=== PATIENT | male | born 2000 | race Two or more races ===

== ENCOUNTER 2024-01-16 21:38 | Inpatient (IN) | payer MEDICAID, SELFPAY ==
[2024-01-16 21:39] VITALS: BMI 31.9
[2024-01-16 22:10] VITALS: BP 148/92; PULSE 117; RESP 20; TEMP 39; O2SAT 95
--- NOTE | 2024-01-16 22:17 | XR_ITS ---
Examination: CT abdomen with intravenous contrast CT pelvis with intravenous contrast 2-D coronal reconstructions 2-D sagittal reconstructions Date and time of exam:January 16, 2024 1146 hrs. Indications: Nausea vomiting today. CTDI: vol (mGy) 8.88 DLP: (mGycm) 519 Technique: Multiple axial sections of the abdomen and pelvis have been obtained. 64 slice high-resolution scanner used. 3 mm axial sections have been obtained, post intravenous injection 60 cc Isovue-370 2-D sagittal, coronal reconstructions obtained. Low dose protocols were performed. One or more of the following dose reduction techniques were used; automated exposure control, adjustment of the mA and/or KV according to patient size, use of iterative reconstruction technique. Findings: No focal liver or splenic lesion No gallstones No pancreatic mass 3 mm calcification in a 17 mm right renal cyst Aorta normal size Large phlegmonous mass surrounding the cecum with poorly defined tubular structure medial to the cecum axial image 149, probably ruptured inflamed appendix Bladder intact Impression: Large phlegmonous infectious mass surrounding the cecum with poorly defined tubular structure medial to the cecum, most consistent with inflamed ruptured acute appendicitis The appearance should be clinically correlated
--- NOTE | 2024-01-16 22:18 | EDRME_ITS ---
Rapid Medical Screening Exam [facility] Arrival date/time: 01/16/24 21:38 23M with no significant PMH presents to ED with 1 week of worsening epigastric pain and N/V. Patient denies diarrhea and drug/alcohol use. Chief Complaint: Abdominal Pain Vital signs: Vital Signs Temperature 102.2 F H 01/16/24 22:10 Pulse Rate 117 H 01/16/24 22:10 Respiratory Rate 20 01/16/24 22:10 Blood Pressure 148/92 H 01/16/24 22:10 Pulse Oximetry (%) 95 01/16/24 22:10 Oxygen Delivery Method Room Air 01/16/24 22:10
[2024-01-16 23:01] LABS: Lactate (Lactic Acid) 1.1 mMol/L (0.4-2.0)
[2024-01-16 23:03] LABS: Basophils % (Auto) 0 % (0-2.5); Eosinophils % (Auto) 0 % (0-10); Hematocrit 40.2 % (41.0-53.0); Hemoglobin 13.3 g/dL (13.5-16.0); Immature Granulocytes % (Auto) 0 % (0-0); Immature Granulocytes Auto 0.06 Thou/mm3 (0.00-0.00); Lymphocytes # (Auto) 1.7 Thou/mm3 (1.0-4.8); Lymphocytes % (Auto) 11 % (10-50); Mean Corpuscular HGB Conc 33.1 g/dl (31.0-37.0); Mean Corpuscular Hemoglobin 27.7 pg (25.0-35.0); Mean Corpuscular Volume 84 fL (80-100); Monocytes # (Auto) 1.6 Thou/mm3 (0.0-0.8); Monocytes % (Auto) 10 % (0-12); Neutrophils # (Auto) 12.4 Thou/mm3 (1.8-7.7); Neutrophils % (Auto) 79 % (37-80); Nucleated Red Blood Cell % 0 /100 WBC (0); Platelet Count 421 Thou/mm3 (140-440); RDW Standard Deviation 38.5 fL (35.1-43.9); Red Blood Count 4.81 Miln/mm3 (4.50-5.90); White Blood Count 15.8 Thou/mm3 (3.8-10.6)
[2024-01-16 23:15] VITALS: TEMP 39
[2024-01-16 23:15] LABS: Collection Type, Urine Clean Catch
[2024-01-16] MEDS: ACETAMINOPHEN 500 MG TABLET 1000 MG PO (23:15)
[2024-01-16] MEDS: SODIUM CHLORIDE 0.9% 1000 ML 1,000 ML 999 ML IV (23:24)
--- NOTE | 2024-01-16 23:25 | PC.NURSE ---
RECEIVE PT FROM ER LOBBY, PT CAME TO ER FOR C/O ABD PAIN, IN TRIAGE PT HAD FEVER, SEPSIS ALERT CALLED, PT SAID HE HAS UPPER ABD PAIN X 4 DAYS, SEN BY CLINIC AND DX OF PULLED MUSCLE. NO C/O N/V/D, C/O NOT EATING.
[2024-01-16 23:32] LABS: Bilirubin,Urine 1+ (Negative); Blood,Urine 2+ (Negative); Clarity,Urine Clear (Clear/Hazy); Color,Urine Yellow (Lt Yel-Yel); Glucose, Urine Negative (Negative); Ketones,Urine 4+ (Negative); Leukocyte Esterase,Urine Negative (Negative); Nitrite,Urine Negative (Negative); Protein,Urine 1+ (Neg - Trace); RBC,Urine 11 /hpf (0-3); Specific Gravity,Urine 1.033 (1.001-1.035); Squamous Epithelial Cell,Urine < 1 /hpf (0-5); WBC,Urine 3 /hpf (0-5)
[2024-01-16 23:33] LABS: Alanine Aminotransferase 28 U/L (10-49); Albumin, Serum 4.6 gm/dL (3.5-5.0); Albumin/Globulin Ratio 1.2 (1.2-2.2); Alkaline Phosphatase 131 U/L (46-116); Anion Gap 10 (7-16); Aspartate Amino Transferase 16 U/L (0-34); BUN/Creatinine Ratio 10 Ratio (12-20); Bilirubin,Total 0.9 mg/dL (0.3-1.2); Blood Urea Nitrogen 8 mg/dL (9-23); Calcium 10.1 mg/dL (8.3-10.6); Calcium (Corrected) 10.1 mg/dL (8.5-10.1); Carbon Dioxide 25.6 mMol/L (20.0-31.0); Chloride 97 mMol/L (98-107); Creatinine (Component) 0.8 mg/dL (0.6-1.3); Estimated Creatinine Clearance 157.1 mL/min (>60); Globulin 3.7 gm/dL (2.3-3.5); Glucose 93 mg/dL (74-106); Lipase 27 U/L (12-53); Osmolality,Calculated 264 (275-295); Potassium 3.6 mMol/L (3.4-5.1); Procalcitonin 0.28 ng/ml (0.0-0.49); Sodium 133 mMol/L (136-145); Total Protein 8.3 gm/dL (5.7-8.2); eGFR > 60 See Note
[2024-01-16 23:38] LABS: Amphetamine/Methamp Scrn,U Negative (Negative); Barbiturate Screen,Urine Negative (Negative); Benzodiazepines Screen,Urine Negative (Negative); Benzoylecgonine Screen, Ur Negative (Negative); Fentanyl Screen,Urine Negative (Negative); Opiate Screen,Urine Negative (Negative); THC Screen,Urine Negative (Negative)
[2024-01-17] VITALS (7 sets, daily range): BP systolic 137–162; BP diastolic 71–93; PULSE 83–104; RESP 16–20; TEMP 36.4–38.4; O2SAT 96–99; BMI 32.5
--- NOTE | 2024-01-17 00:33 | PD.EDABDPN ---
ED Abdominal Pain RME/HPI General Chief Complaint: Abdominal Pain Stated complaint: MY STOMACH IS BURNING Arrival date/time: 01/16/24 21:38 RME / HPI RME / HPI narrative: 01/16/24 21:38 23M with no significant PMH presents to ED with 1 week of worsening epigastric pain and N/V. Patient denies diarrhea and drug/alcohol use. ---- Dr. Judge?s Main ED Evaluation: 29-year-old male otherwise healthy who presents with 1 week of initially right upper quadrant pain that has now migrated to his epigastric region. He denies nausea vomiting or diarrhea. He notes near complete anorexia and has not had an appetite to eat for the last 3 days. He denies right lower quadrant pain or any lower abdominal pain. Related Data Home Medications ?Medication ?Instructions ?Recorded ?Confirmed No Known Home Medications 01/16/24 01/16/24 Allergies Allergy/AdvReac Type Severity Reaction Status Date / Time No Known Allergies Allergy Verified 01/16/24 21:39 Review of Systems Review of Systems Systems Reviewed: All systems reviewed, normal except as documented Past Medical History Past Medical History CARDIAC: Negative Cardiac Disorders or Congestive Heart Failure RESPIRATORY: Negative Chronic Obstructive Pulmonary Disease (COPD) or Asthma GENITOURINARY: Negative Renal Disease ENDOCRINE: Negative Diabetes Mellitus Type 1 or Diabetes Mellitus Type 2 HEMATOLOGIC: Negative Sickle Cell Disease Social History SMOKING STATUS: Never smoker ED Exam Narrative Physical exam: GENERAL APPEARANCE: AxOx4, generally well-appearing, no acute distress. HEENT: NC, AT. MMM. EOMI, clear conjunctiva, oropharynx clear. NECK: Supple without lymphadenopathy. No stiffness or restricted ROM. HEART: Normal rate and regular rhythm, normal S1/S1, no m/r/g LUNGS: CTAB, moving air well. No crackles or wheezes are heard. ABDOMEN: Soft, nontender, nondistended with good bowel sounds heard. BACK: No midline C/T/L spine pain or deformity, No CVAT, no obvious deformity. EXTREMITIES: Without cyanosis, clubbing or edema. MUSCULOSKELETAL: FROM of all major joints, no chest tenderness NEUROLOGICAL: Grossly nonfocal. Alert and oriented, moving all 4 extremities. CN not formally tested but appear grossly intact. Observed to ambulate with normal gait. Skin: Warm and dry without any rash Course Quality Measures none Orders Category Date Time Status CT Screening NOW Care 01/16/24 22:17 Active Insert IV NOW Care 01/16/24 22:18 Active Consult to General Surgery Routine Cons 01/17/24 01:[address] abdomen pelvis w con Stat Exams 01/16/24 22:17 Completed Blood Culture (Lab) Stat Lab 01/16/24 20:26 Received CBC Stat Lab 01/16/24 20:24 Completed CMP [Comprehensive Metabolic Panel] Stat Lab 01/16/24 20:24 Completed Drug Screen,Urine Stat Lab 01/16/24 23:11 Completed Lactate (Lactic Acid) Stat Lab 01/16/24 20:24 Completed Lipase Stat Lab 01/16/24 20:24 Completed Procalcitonin Stat Lab 01/16/24 20:24 Completed UA [Urinalysis] Stat Lab 01/16/24 23:11 Completed Acetaminophen Tab [Tylenol ES Tab] Med 01/16/24 22:53 Discontinued 1,000 mg PO X1 ONE CIPROFLOXACIN/D5w 400 MG IVPB [Cipro Ivpb] Med 01/17/24 00:34 Discontinued 400 mg in 200 ml IV X1 Ondansetron Inj [Zofran Inj] Med 01/16/24 22:17 Discontinued 4 mg IV X1 ONE Sodium Chloride 0.9% 1000 ml [Ns] 1,000 ml Med 01/16/24 22:17 Discontinued IV 999 mls/hr metroNIDAZOLE/NS 500 MG IVPB [Flagyl 500 mg IV] Med 01/17/24 00:45 Discontinued 500 mg in 100 ml IV Q6HR metroNIDAZOLE/NS 500 MG IVPB [Flagyl 500 mg IV] Med 01/17/24 00:45 Discontinued 500 mg in 100 ml IV X1 Reevaluation(s) Reevaluation #1: Patient continues to complain of epigastric pain, abdominal exam shows primarily epigastric to right mid abdominal pain. There does not appear to be any right lower quadrant pain, but could be migrating at this point therefore surgery will be consulted for Time: 01:30 Vital Signs Vital signs: Vital Signs Temperature 102.2 F H 01/16/24 22:10 Pulse Rate 117 H 01/16/24 22:10 Respiratory Rate 20 01/16/24 22:10 Blood Pressure 148/92 H 01/16/24 22:10 Pulse Oximetry (%) 95 01/16/24 22:10 Oxygen Delivery Method Room Air 01/16/24 22:10 Pulse ox is 95% on room air, which is normal according to my interpretation. Abdominal Pain MDM MDM Narrative MDM Narrative:: Mr. Lind is clinically well-appearing gentleman with a vague epigastric pain for the last week. He has a benign abdominal exam and no significant tenderness. Laboratory testing and CT were sent via the RME process which is significant for elevated leukocytosis at 15,800 with normal electrolytes and normal creatinine. CT scan of the abdomen was ordered via the RME process showing a phlegmon surrounding the cecum on the right and possible ruptured appendix. Patient has very little or no subjective complaints or other abdominal exam that would be consistent with an acute appendicitis. Patient was otherwise started on IV fluids and IV antibiotics in the emergency department and warrants further monitoring with general surgery given the questionable appendicitis findings on his CT. Patient data External records reviewed:: [facility] previous records (Per chart review, patient has no previous ED visits or admissions to this facility.) Clinical information provided by:: patient Social determinants that could affect healthcare access:: none Patient has the following chronic illnesses:: none How is presenting disease/condition affected by chronic disease/condition?: no chronic disease Evaluation data The following diagnostics were reviewed and interpreted by me:: lab results and radiology exam(s) Lab and/or radiology exams considered but not ordered:: none Interpretation Summary: WBC count is elevated at 15.8, Sodium is slightly low at 133, Procalcitonin is normal, Lipase is normal at 27, Lactate is normal at 1.1, UA shows 1+ protein, 4+ ketones, at 2+ blood, UDS is negative, according to my interpretation. ----- [facility] Report Signed Patient: CHRISTIAN LIND [facility]. Record#: [id number] Birthdate: 2000 Age/Sex: 23 / M Location: [facility] Attending Dr: Ordering Physician: Dayo Welch PA-C Date of Service: 01/16/24 Procedure(s): CT abdomen pelvis w con Accession Number(s): [id number] cc: Don Cantrell MD; Duc Downing MD; Dayo Welch PA-C~ Examination: CT abdomen with intravenous contrast CT pelvis with intravenous contrast 2-D coronal reconstructions 2-D sagittal reconstructions Date and time of exam:January 16, 2024 1146 hrs. Indications: Nausea vomiting today. Technique: Multiple axial sections of the abdomen and pelvis have been obtained. 64 slice high-resolution scanner used. 3 mm axial sections have been obtained, post intravenous injection 60 cc Isovue-370 2-D sagittal, coronal reconstructions obtained. Low dose protocols were performed. One or more of the following dose reduction techniques were used; automated exposure control, adjustment of the mA and/or KV according to patient size, use of iterative reconstruction technique. Findings: No focal liver or splenic lesion No gallstones No pancreatic mass 3 mm calcification in a 17 mm right renal cyst Aorta normal size Large phlegmonous mass surrounding the cecum with poorly defined tubular structure medial to the cecum axial image 149, probably ruptured inflamed appendix Bladder intact Impression: Large phlegmonous infectious mass surrounding the cecum with poorly defined ntubular structure medial to the cecum, most consistent with inflamed ruptured acute appendicitis The appearance should be clinically correlated Dictated By: Duc Downing MD Signed By: <Electronically signed by Duc Downing MD in OV> 01/17/24 0002 Medications / Prescriptions Medications or Prescriptions considered but not ordered:: none Medication administrations:: Medication Administration History Acetaminophen (Acetaminophen 325 Mg Tablet) 650 mg PO Q6H PRN PRN Reason: Fever >101.5 Stop: 02/16/24 01:02 Enoxaparin Sodium (Enoxaparin Sod Inj 40 Mg/0.4 Ml Syringe) 40 mg SC QDAY MUMTAZ Stop: 01/31/24 08:59 Last Admin: 01/17/24 08:14 Dose: 40 mg Documented By: TS Piperacillin/Tazobactam/Dextrose (Zosyn) 3.375 gm in 50 mls @ 12.5 mls/hr IV Q8HR MUMTAZ Stop: 01/24/24 05:59 Last Admin: 01/17/24 13:30 Dose: 12.5 mls/hr Documented By: Infusion: 01/17/24 09:33 Dose: Infused Documented By: Admin: 01/17/24 05:33 Dose: 12.5 mls/hr Documented By: GD Potassium Chloride/Dextrose/Sod Cl (Kcl 20 Meq/L In D5-1/2ns) 20 meq in 1,000 mls @ 100 mls/hr IV .Q10H MUMTAZ Stop: 02/16/24 13:59 Last Admin: 01/17/24 15:18 Dose: 100 mls/hr Documented By: IL Morphine Sulfate (Morphine Sulf Inj 10 Mg/Ml Vial) 2 mg IVP Q2H PRN PRN Reason: PAIN SCALE 7-10 (Severe Stop: 01/22/24 01:02 Last Admin: 01/17/24 17:10 Dose: 2 mg Documented By: Admin: 01/17/24 10:52 Dose: 2 mg Documented By: Admin: 01/17/24 08:15 Dose: 2 mg Documented By: TS Ondansetron HCl (Ondansetron Inj 2 Mg/Ml Inj 2 Ml) 4 mg IV Q6HR PRN; Protocol PRN Reason: NAUSEA OR VOMITING Stop: 02/16/24 08:13 Pantoprazole Sodium (Pantoprazole Inj 40 Mg Vial) 40 mg IVP QDAY MUMTAZ Stop: 02/16/24 08:59 Last Admin: 01/17/24 08:14 Dose: 40 mg Documented By: TS Discontinued Medications Acetaminophen (Acetaminophen 500 Mg Tablet) 1,000 mg PO X1 ONE Stop: 01/16/24 22:54 Last Admin: 01/16/24 23:15 Dose: 1,000 mg Documented By: CVL Sodium Chloride (Ns) 1,000 mls @ 999 mls/hr IV .Q1H1M ONE Stop: 01/16/24 23:17 Last Infusion: 01/17/24 00:29 Dose: Infused Documented By: Admin: 01/16/24 23:24 Dose: 999 mls/hr Documented By: CVL Ciprofloxacin/Dextrose (Cipro Ivpb) 400 mg in 200 mls @ 200 mls/hr IV X1 ONE Stop: 01/17/24 01:33 Last Infusion: 01/17/24 01:51 Dose: Infused Documented By: Admin: 01/17/24 00:37 Dose: 200 mls/hr Documented By: CVL Metronidazole (Flagyl 500 Mg Iv) 500 mg in 100 mls @ 200 mls/hr IV Q6HR MUMTAZ Stop: 01/24/24 00:44 Last Admin: 01/17/24 01:33 Dose: Not Given Documented By: CVL Non-Admin Reason: Cancelled by Provider Metronidazole (Flagyl 500 Mg Iv) 500 mg in 100 mls @ 200 mls/hr IV X1 ONE Stop: 01/17/24 01:14 Last Infusion: 01/17/24 02:26 Dose: Infused Documented By: Admin: 01/17/24 01:53 Dose: 200 mls/hr Documented By: CVL Sodium Chloride (Ns) 1,000 mls @ 100 mls/hr IV .Q10H MUMTAZ Stop: 02/16/24 01:14 Last Admin: 01/17/24 13:29 Dose: 100 mls/hr Documented By: Infusion: 01/17/24 12:27 Dose: Infused Documented By: Admin: 01/17/24 02:27 Dose: 100 mls/hr Documented By: CVL Piperacillin/Tazobactam/Dextrose (Zosyn) 3.375 gm in 50 mls @ 100 mls/hr IV X1 ONE Stop: 01/17/24 01:44 Last Admin: 01/17/24 02:28 Dose: 100 mls/hr Documented By: CVL Ondansetron HCl (Ondansetron Inj 2 Mg/Ml Inj 2 Ml) 4 mg IV X1 ONE; Protocol Stop: 01/16/24 22:18 Last Admin: 01/17/24 00:14 Dose: Not Given Documented By: CVL Non-Admin Reason: Change of Condition see above Consultations Consultation(s) initiated? (list below): Yes Consultation #1 (Physician, Specialty, Details): Discussed case with [Dr. Rodas] from Hospitalist service regarding admission. Discussed patients ED course, exam findings, labs, and radiology results. The Hospitalist [agrees] to accept the patient for admission. Diagnosis Differential diagnosis abdominal pain: acute appendicitis, calculus of kidney, diverticulitis, gastroenteritis and pancreatitis Most likely diagnosis given after review of the tests above:: as below Admission Indicated Admission indicated?: indicated Admission Request Was there a request for admission?: Yes Admission Attestation Admission request attestation: Discussed case with [Dr. Rodas] from Hospitalist service regarding admission. Discussed patients ED course, exam findings, labs, and radiology results. The Hospitalist [agrees] to accept the patient for admission. Disposition Plan Disposition Plan: Admit Discharge Plan Plan Patient Disposition: Admit Acute Care w/in Hospital Disposition Comment: MED SURG ADMIT Patient condition on transfer: Stable Problem List Clinical Impression: Acute appendicitis with perforation and localized peritonitis, without abscess or gangrene
[2024-01-17] MEDS: CIPROFLOXACIN/D5w 400 MG IVPB 400 MG/200 ML BAG 200 MG IV (00:37)
[2024-01-17] MEDS: metroNIDAZOLE/NS 500 MG IVPB 500 MG/100 ML BAG 200 MG IV (01:53)
--- NOTE | 2024-01-17 01:53 | ESHP_ITS ---
Documentation for date of: 01/17/24 [facility] History of Present Illness History of present illness: 23-year-old male with no significant past medical history presented to the hospital with the chief complaints of abdominal pain and fever for the past 1 week. Patient was apparently normal 1 week back then developed an episode of abdominal pain lasted for a day and resolved spontaneously. Pain again restarted 3 days back following which he went to [facility] for which ibuprofen is given. But the pain still persisted and patient started developing febrile episodes on and off with the last febrile episode on the day of admission. Reported loss of appetite for the past 3 days. Denies nausea, vomiting, constipation, diarrhea. ED Course: -Initial vitals were blood pressure 148/92 mmHg, pulse rate 117/min, respiratory rate 20/min, temperature 102.2 ?F, SpO2 95% with room air. -Labs significant for WBC 15.8, sodium 133, ALP 131. Urine analysis showed 1+ protein, 4+ ketones, 2+ blood, 11 RBC. -Abdominal CT showed large phlegmonous infectious mass surrounding the cecum with poorly defined tubular structure medial to the cecum, most consistent with inflamed ruptured acute appendicitis -In the ED, patient was given curly acetaminophen, ciprofloxacin, metronidazole, IV fluids. -Patient was admitted for ruptured acute appendicitis. Past medical history: Not significant Past surgical history: Underwent surgery for right forearm fracture Social history: Denies smoking, alcohol, illicit drug abuse. Review of Systems Review of Systems Systems Reviewed: All systems reviewed, normal except as documented Past Medical History Past Medical History CARDIAC: Negative Cardiac Disorders or Congestive Heart Failure RESPIRATORY: Negative Chronic Obstructive Pulmonary Disease (COPD) or Asthma GENITOURINARY: Negative Renal Disease ENDOCRINE: Negative Diabetes Mellitus Type 1 or Diabetes Mellitus Type 2 HEMATOLOGIC: Negative Sickle Cell Disease Social History SMOKING STATUS: Never smoker Exam Vital Signs Temp Pulse Resp BP Pulse Ox O2 Del Method 98.3 F 104 H 16 137/71 H 99 Room Air 01/17/24 00:15 01/17/24 00:15 01/17/24 00:15 01/17/24 00:15 01/17/24 00:15 01/17/24 00:15 Narrative Exam General: Awake and in no acute distress. HEENT: Normocephalic, atraumatic, mucous membranes moist. Heart: Regular rate and rhythm, no murmurs. Lungs: Clear to auscultation with no wheezing or crackles. Abdomen: Soft, nondistended, nontender, positive bowel sounds. ?No guarding or rebound tenderness. Neurologic: Alert and oriented x3, no gross neurological deficit, and patient able to move all 4 extremities. Extremities: No edema. Skin: No rash or ecchymoses. Results: Labs 01/16/24 20:24 01/16/24 20:24 Labs: Short CBC 01/16/24 Range/Units 20:24 WBC 15.8 H (3.8-10.6) Thou/mm3 Hgb 13.3 L (13.5-16.0) g/dL Hct 40.2 L (41.0-53.0) % Plt Count 421 (140-440) Thou/mm3 BMP 01/16/24 20:24 Sodium 133 L Potassium 3.6 Chloride 97 L Carbon Dioxide 25.6 BUN 8 L Creatinine 0.8 Glucose 93 Calcium 10.1 Liver Function 01/16/24 Range/Units 20:24 Total Bilirubin 0.9 (0.3-1.2) mg/dL AST 16 (0-34) U/L ALT 28 (10-49) U/L Alkaline Phosphatase 131 H (46-116) U/L Albumin 4.6 (3.5-5.0) gm/dL Urine 01/16/24 Range/Units 23:11 Urine Color Yellow (Lt Yel-Yel) Urine Clarity Clear (Clear/Hazy) Urine pH 6.0 (5.0-7.0) Ur Specific [place] 1.033 (1.001-1.035) Urine Protein 1+ A (Neg - Trace) Urine Glucose (UA) Negative (Negative) Quality Measures Quality Measures none Medications Home Medications and Allergies Home Medications ?Medication ?Instructions ?Recorded ?Confirmed ?Type No Known Home Medications 01/16/24 01/16/24 History Allergies Allergy/AdvReac Type Severity Reaction Status Date / Time No Known Allergies Allergy Verified 01/16/24 21:39 Visit Medications Acetaminophen (Acetaminophen 325 Mg Tablet) 650 mg PO Q6H PRN PRN Reason: Fever >101.5 Stop: 02/16/24 01:02 Enoxaparin Sodium (Enoxaparin Sod Inj 40 Mg/0.4 Ml Syringe) 40 mg SC QDAY MUMTAZ Stop: 01/31/24 08:59 Sodium Chloride (Ns) 1,000 mls @ 100 mls/hr IV .Q10H MUMTAZ Stop: 02/16/24 01:14 Piperacillin/Tazobactam/Dextrose (Zosyn) 3.375 gm in 50 mls @ 100 mls/hr IV Q6HR MUMTAZ Stop: 01/24/24 01:04 Morphine Sulfate (Morphine Sulf Inj 10 Mg/Ml Vial) 2 mg IVP Q2H PRN PRN Reason: PAIN SCALE 7-10 (Severe Stop: 01/22/24 01:02 Discontinued Medications Acetaminophen (Acetaminophen 500 Mg Tablet) 1,000 mg PO X1 ONE Stop: 01/16/24 22:54 Last Admin: 01/16/24 23:15 Dose: 1,000 mg Sodium Chloride (Ns) 1,000 mls @ 999 mls/hr IV .Q1H1M ONE Stop: 01/16/24 23:17 Last Infusion: 01/17/24 00:29 Dose: Infused Ciprofloxacin/Dextrose (Cipro Ivpb) 400 mg in 200 mls @ 200 mls/hr IV X1 ONE Stop: 01/17/24 01:33 Last Infusion: 01/17/24 01:51 Dose: Infused Metronidazole (Flagyl 500 Mg Iv) 500 mg in 100 mls @ 200 mls/hr IV Q6HR MUMTAZ Stop: 01/24/24 00:44 Last Admin: 01/17/24 01:33 Dose: Not Given Metronidazole (Flagyl 500 Mg Iv) 500 mg in 100 mls @ 200 mls/hr IV X1 ONE Stop: 01/17/24 01:14 Piperacillin/Tazobactam/Dextrose (Zosyn) 3.375 gm in 50 mls @ 100 mls/hr IV X1 ONE Stop: 01/17/24 01:44 Ondansetron HCl (Ondansetron Inj 2 Mg/Ml Inj 2 Ml) 4 mg IV X1 ONE; Protocol Stop: 01/16/24 22:18 Last Admin: 01/17/24 00:14 Dose: Not Given Assessment & Plan Plan 23-year-old male with no significant past medical history presented to the hospital with the chief complaints of abdominal pain and fever for the past 1 week and diagnosed to have ruptured acute appendicitis. # Ruptured acute appendicitis - Chief complaints of abdominal pain and fever for the past 1 week - Initial vitals were blood pressure 148/92 mmHg, pulse rate 117/min, respiratory rate 20/min, temperature 102.2 ?F, SpO2 95% with room air. - Labs significant for WBC 15.8, sodium 133, ALP 131. Urine analysis showed 1+ protein, 4+ ketones, 2+ blood, 11 RBC. - Abdominal CT showed large phlegmonous infectious mass surrounding the cecum with poorly defined tubular structure medial to the cecum, most consistent with inflamed ruptured acute appendicitis - In the ED, patient was given curly acetaminophen, ciprofloxacin, metronidazole, IV fluids. - Simon score is 5 plan - Started on Zosyn [01/16- - Started on IV fluids NS maintenance @100 mL/h - Dr Romero was consulted, pending recommendations. - NPO - Will continue to monitor vitals. # Hematuria - Urine analysis showed 1+ protein, 4+ ketones, 2+ blood, 11 RBC. - Patient denies any complaints regarding renal stones. Plan - Follow-up with repeat urine analysis if needed Hospital Maintenance: Dispo: med surg DVT ppx: Lovenox GI ppx: Protonix Diet: N.p.o. IV lines: Peripheral Code status: Full code Patient plan of care was discussed with the attending physician, Dr. Clark Benítez, PGY1 Attending Provider Attestation/Addendum Pt was evaluated and plan formulated together with the housestaff team. I have reviewed the residents note above and agree with most of its content. Please refer to the residents note for additional details.
[2024-01-17] MEDS: SODIUM CHLORIDE 0.9% 1000 ML 1,000 ML 100 ML IV ×2 (02:27→13:29)
[2024-01-17] MEDS: PIPER/TAZO 3.375 GM 3.375 GM/50 ML BAG IV ×4 (02:28→21:00)
--- NOTE | 2024-01-17 02:47 | PC.NURSE ---
REPORT TO BÁRBARA HANNAH AT [facility].
[2024-01-17 06:24] LABS: Basophils % (Auto) 0 % (0-2.5); Eosinophils # (Auto) 0.1 Thou/mm3 (0.0-0.5); Eosinophils % (Auto) 0 % (0-10); Hematocrit 37.8 % (41.0-53.0); Hemoglobin 12.3 g/dL (13.5-16.0); Immature Granulocytes % (Auto) 0 % (0-0); Immature Granulocytes Auto 0.05 Thou/mm3 (0.00-0.00); Lymphocytes # (Auto) 1.8 Thou/mm3 (1.0-4.8); Lymphocytes % (Auto) 13 % (10-50); Mean Corpuscular HGB Conc 32.5 g/dl (31.0-37.0); Mean Corpuscular Hemoglobin 27.5 pg (25.0-35.0); Mean Corpuscular Volume 85 fL (80-100); Monocytes # (Auto) 1.3 Thou/mm3 (0.0-0.8); Monocytes % (Auto) 9 % (0-12); Neutrophils # (Auto) 10.9 Thou/mm3 (1.8-7.7); Neutrophils % (Auto) 77 % (37-80); Nucleated Red Blood Cell % 0 /100 WBC (0); Platelet Count 358 Thou/mm3 (140-440); RDW Standard Deviation 39.2 fL (35.1-43.9); Red Blood Count 4.47 Miln/mm3 (4.50-5.90); White Blood Count 14.2 Thou/mm3 (3.8-10.6)
[2024-01-17 07:01] LABS: Anion Gap 10 (7-16); BUN/Creatinine Ratio 10 Ratio (12-20); Blood Urea Nitrogen 7 mg/dL (9-23); Calcium 9.2 mg/dL (8.3-10.6); Carbon Dioxide 27.4 mMol/L (20.0-31.0); Chloride 99 mMol/L (98-107); Creatinine (Component) 0.7 mg/dL (0.6-1.3); Glucose 91 mg/dL (74-106); Osmolality,Calculated 269 (275-295); Potassium 3.6 mMol/L (3.4-5.1); Sodium 136 mMol/L (136-145); eGFR > 60 See Note
[2024-01-17] MEDS: ENOXAPARIN SOD INJ 40 MG/0.4 ML SYRINGE SC (08:14)
[2024-01-17] MEDS: PANTOPRAZOLE INJ 40 MG VIAL IVP (08:14)
[2024-01-17] MEDS: MORPHINE SULF INJ 10 MG/ML VIAL 2 MG IVP ×4 (08:15→21:40)
[2024-01-17 10:23] LABS: Cardiac Risk Estimate 5.4 RATIO (4.0-6.7); Cholesterol 134 mg/dL (132-200); HDL Cholesterol 25 mg/dL (40-60); LDL Cholesterol,Calculated 92 mg/dL (0-130); Triglycerides 85 mg/dL (30-150)
--- NOTE | 2024-01-17 13:49 | PD.SURCONS ---
HPI Consult details Consult date: 01/17/24 Reason for consultation narrative: Abdominal pain and fever History of present illness: 23-year-old male without significant past medical history presented to the emergency department with worsening abdominal pain. His symptoms started about a week ago with epigastric and periumbilical pain that was intermittent. His pain has been getting progressively worse. His pain is now localized over right lower quadrant. He has had nausea, vomiting and fever. He denies diarrhea, constipation or dysuria. He denies having similar symptoms in the past. Review of Systems Constitutional Constitutional: Denies chills and Reports fever(s) Cardiovascular Cardiovascular: Denies chest pain Gastrointestinal Gastrointestinal: Reports abdominal pain, Reports nausea and Reports vomiting Genitourinary Genitourinary: Denies difficulty urinating Hematologic/Lymphatic Hematologic/Lymphatic: Denies easy bleeding and Denies easy bruising Past Medical History Surgical History OTHER SURGICAL HX: Repair of right forearm fracture Social History SMOKING STATUS: Never smoker SUBSTANCE USE: does not use ALCOHOL: Current Meds Home Medications and Allergies Home Medications ?Medication ?Instructions ?Recorded ?Confirmed ?Type No Known Home Medications 01/16/24 01/16/24 History Allergies Allergy/AdvReac Type Severity Reaction Status Date / Time No Known Allergies Allergy Verified 01/16/24 21:39 Exam Vital Signs Temp Pulse Resp BP Pulse Ox O2 Del Method 99.1 F 98 18 155/77 H 98 Room Air 01/17/24 08:00 01/17/24 08:00 01/17/24 08:00 01/17/24 08:00 01/17/24 08:00 01/17/24 08:00 Constitutional Constitutional: no acute distress Routine Abdominal Exam Abdominal: Present soft, normoactive bowel sounds and tenderness (Right lower quadrant tenderness to palpation with guarding. No rebound tenderness or peritonitis at this time); Absent distended Results Results: Laboratory Laboratory results: results reviewed Results: Imaging CT scan - abdomen: report reviewed and image reviewed CT scan - pelvis: report reviewed and image reviewed Assessment & Plan Problem List (1) Acute appendicitis with perforation and localized peritonitis, without abscess or gangrene: Status: Acute Additional Assessment Additional comments: Patient most likely has perforated appendicitis with localized peritonitis and large phlegmon Plan Keep n.p.o. with IV fluids and IV antibiotics. If symptoms improve we will continue nonoperative management. I explained to the patient and his mother that if his symptoms worsen and or clinical course deteriorates he will require emergent operation.
[2024-01-17] MEDS: KCL 20 mEq/L in D5-1/2NS 20 MEQ/1,000 ML BAG 100 MEQ IV (15:18)
--- NOTE | 2024-01-17 15:43 | ESPR_ITS ---
Documentation for date of: 01/17/24 Subjective Subjective Interval history: No overnight events. Patient feels well, pain controlled with IV morphine. Denies fever, chills, nausea, vomiting, dysuria, diarrhea, constipation. Continue Zosyn and IV fluids, follow-up on surgery consult. Exam Vital Signs Temp Pulse Resp BP Pulse Ox O2 Del Method 101.2 F H 88 18 150/84 H 99 Room Air 01/17/24 12:00 01/17/24 12:00 01/17/24 12:00 01/17/24 12:00 01/17/24 12:00 01/17/24 12:00 Narrative Exam PE: Gen: Well-developed and well-nourished. HEENT: NCAT, PERRLA, EOMI, MMM, anicteric conjunctivae. CVS: normal S1 and S2. RRR. No M/R/G. Resp: CTA B/L. No rhonchi, rales, crackles or wheezing. Abd: soft, non-distended. Epigastric tenderness. MSK: Good ROM in BUE & BLE. No edema or rash. Neuro: CN II-XII grossly intact. Strength 5/5 in BUE & BLE. Alert and oriented x3. Psych: appropriate mood and affect. Objective Labs 01/17/24 05:27 01/17/24 05:27 Labs: Laboratory Results - last 24 hr 01/16/24 01/16/24 01/17/24 20:24 23:11 05:27 WBC 15.8 H 14.2 H RBC 4.81 4.47 L Hgb 13.3 L 12.3 L Hct 40.2 L 37.8 L MCV 84 85 MCH 27.7 27.5 MCHC 33.1 32.5 RDW Std Deviation 38.5 39.2 Plt Count 421 358 D Neut % (Auto) 79 77 Lymph % (Auto) 11 13 [place] % (Auto) 10 9 Eos % (Auto) 0 0 Baso % (Auto) 0 0 Neut # (Auto) 12.4 H 10.9 H Lymph # (Auto) 1.7 1.8 [place] # (Auto) 1.6 H 1.3 H Eos # (Auto) 0.0 0.1 Baso # (Auto) 0.0 0.0 Immature Gran # (Auto) 0.06 H 0.05 H Absolute Nucleated RBC 0.00 0.00 Immature Gran % 0 0 Nucleated RBC % 0 0 Sodium 133 L 136 Potassium 3.6 3.6 Chloride 97 L 99 Carbon Dioxide 25.6 27.4 Anion Gap 10 10 BUN 8 L 7 L Creatinine 0.8 0.7 Estim Creat Clear Calc 157.1 181.0 eGFR > 60 > 60 BUN/Creatinine Ratio 10 L 10 L Glucose 93 91 Calculated Osmolality 264 L 269 L Lactic Acid 1.1 Calcium 10.1 9.2 Corrected Calcium 10.1 Total Bilirubin 0.9 AST 16 ALT 28 Alkaline Phosphatase 131 H Total Protein 8.3 H Albumin 4.6 Globulin 3.7 H Albumin/Globulin Ratio 1.2 Triglycerides 85 Cholesterol 134 LDL Cholesterol, Calc 92 HDL Cholesterol 25 L Cholesterol/HDL Ratio 5.4 Lipase 27 Procalcitonin 0.28 Ur Collection Type Clean Catch Urine Color Yellow Urine Clarity Clear Urine pH 6.0 Ur Specific [place] 1.033 Urine Protein 1+ A Urine Glucose (UA) Negative Urine Ketones 4+ A Urine Blood 2+ A Urine Nitrite Negative Urine Bilirubin 1+ A Urine Urobilinogen (Auto) 2.0 Ur Leukocyte Esterase Negative Urine RBC 11 H Urine WBC 3 Ur Squamous Epith Cells < 1 Urine Bacteria None Urine Opiates Screen Negative Urine Fentanyl Screen Negative Ur Barbiturates Screen Negative U Amphetamin/Meth Scrn Negative U Benzodiazepines Scrn Negative U Cocaine Metab Screen Negative U Marijuana (THC) Screen Negative Quality Measures Quality Measures none Assessment & Plan Assessment Current Active Medications: Generic Name Dose Route Start Last Admin Trade Name Freq PRN Reason Stop Dose Admin Acetaminophen 650 mg 01/17/24 01:03 Acetaminophen 325 Mg Tablet PO 02/16/24 01:02 Q6H PRN Fever >101.5 Enoxaparin Sodium 40 mg 01/17/24 09:00 01/17/24 08:14 Enoxaparin Sod Inj 40 Mg/0.4 Ml Syringe SC 01/31/24 08:59 40 mg QDAY MUMTAZ Administration Piperacillin/Tazobactam/Dextrose 3.375 gm in 50 mls @ 12.5 mls/hr 01/17/24 06:00 01/17/24 13:30 Zosyn IV 01/24/24 05:59 12.5 mls/hr Q8HR MUMTAZ Administration Potassium Chloride/Dextrose/Sod Cl 20 meq in 1,000 mls @ 100 mls/hr 01/17/24 14:00 01/17/24 15:18 Kcl 20 Meq/L In D5-1/2ns IV 02/16/24 13:59 100 mls/hr .Q10H MUMTAZ Administration Morphine Sulfate 2 mg 01/17/24 01:03 01/17/24 10:52 Morphine Sulf Inj 10 Mg/Ml Vial IVP 01/22/24 01:02 2 mg Q2H PRN Administration PAIN SCALE 7-10 (Severe Ondansetron HCl 4 mg 01/17/24 08:14 Ondansetron Inj 2 Mg/Ml Inj 2 Ml IV 02/16/24 08:13 Q6HR PRN NAUSEA OR VOMITING Protocol Pantoprazole Sodium 40 mg 01/17/24 09:00 01/17/24 08:14 Pantoprazole Inj 40 Mg Vial IVP 02/16/24 08:59 40 mg QDAY MUMTAZ Administration Plan 23 y/o M without significant PMHx presenting to ED with complaint of intermittent abdominal pain with associated fevers, nausea, vomiting x 1 week, admitted for ruptured appendix. #Sepsis secondary to ruptured appendix Patient presented with complaint of intermittent abdominal pain with associated fevers, nausea, vomiting all of which were becoming progressively worse despite treatment with Tylenol and ibuprofen. In ED patient met SIRS criteria 3/4: Tachycardia 117, fever 102.2, leukocytosis 15.8. CT A/P showed infectious mass around cecum most likely ruptured acute appendicitis. Patient given 1 L bolus normal saline in the ED. General surgery's been consulted. Patient started on Zosyn and IV fluids. -N.p.o. -Zosyn 3.375 g IV every 8 hours (started 01/17/2024) -IVF: Potassium chloride 20 mEq in 1 L D5?half NS at 100 mL/h -Tylenol 650 mg p.o. every 6 hours for fever or pain -Zofran 4 mg IV every 6 hours for nausea -Morphine 2 g IV every 2 hours as needed for severe pain -GI consult appreciated. #Kidney stone with microscopic hematuria Microscopic hematuria noted on urine analysis. CT A/P showed 3 mm calcification in right renal cyst. -Will continue to monitor DVT prophylaxis: Lovenox GI prophylaxis: Protonix IV Diet: N.p.o. Lines: Peripheral IV Code status: Full code Plan of care discussed with senior resident Dr. Love PGY?[address] Kolb. Bandar Medeiros MD PGY-1 Attending Provider Attestation/Addendum I have examined the patient, reviewed labs and imaging findings, discussed the case with the resident(s), and reviewed entered orders. I agree with the plan of care as outlined in this note, with these additional summaries/recommendations: Patient seen at bedside. Patient admitted overnight for acute ruptured appendicitis. CT of abdomen and pelvis showed large phlegmonous infectious mass surrounding the cecum with poorly defined tubular structure most consistent with inflamed ruptured acute appendicitis. Patient reports pain is now controlled. General surgery consulted, recommendations appreciated. Patient is currently n.p.o., continue IV maintenance fluids, psin control, and IV Zosyn 3.375 g every 8 hours. Leukocytosis improving. 17 mm right renal cyst and microscopic hematuria found on admission. Outpatient follow-up. Repeat hematology and chemistry panel in am. Dr. Kolb
[2024-01-18] VITALS: BP 141/78; PULSE 102; RESP 18; TEMP 36.4; O2SAT 96
[2024-01-18] MEDS: KCL 20 mEq/L in D5-1/2NS 20 MEQ/1,000 ML BAG 100 MEQ IV ×2 (01:14→11:40)
[2024-01-18 01:41] LABS: Partial Thromboplastin Time 32.8 Seconds (22.0-36.0)
[2024-01-18 04:00] VITALS: BP 148/84; PULSE 90; RESP 18; TEMP 36.8; O2SAT 93
[2024-01-18] MEDS: PIPER/TAZO 3.375 GM 3.375 GM/50 ML BAG IV ×3 (05:18→21:00)
[2024-01-18 06:16] LABS: Basophils % (Auto) 0 % (0-2.5); Eosinophils # (Auto) 0.1 Thou/mm3 (0.0-0.5); Eosinophils % (Auto) 1 % (0-10); Hematocrit 38.4 % (41.0-53.0); Hemoglobin 12.5 g/dL (13.5-16.0); Immature Granulocytes % (Auto) 1 % (0-0); Immature Granulocytes Auto 0.07 Thou/mm3 (0.00-0.00); Lymphocytes # (Auto) 1.3 Thou/mm3 (1.0-4.8); Lymphocytes % (Auto) 9 % (10-50); Mean Corpuscular HGB Conc 32.6 g/dl (31.0-37.0); Mean Corpuscular Hemoglobin 27.2 pg (25.0-35.0); Mean Corpuscular Volume 84 fL (80-100); Monocytes # (Auto) 1.4 Thou/mm3 (0.0-0.8); Monocytes % (Auto) 9 % (0-12); Neutrophils # (Auto) 12.2 Thou/mm3 (1.8-7.7); Neutrophils % (Auto) 81 % (37-80); Nucleated Red Blood Cell % 0 /100 WBC (0); Platelet Count 394 Thou/mm3 (140-440); RDW Standard Deviation 38.5 fL (35.1-43.9); White Blood Count 15.1 Thou/mm3 (3.8-10.6)
[2024-01-18 06:20] LABS: INR 1.5 (0.9-1.3); Prothrombin Time 16.2 Seconds (9.0-12.2)
[2024-01-18 06:28] LABS: Anion Gap 7 (7-16); BUN/Creatinine Ratio 6 Ratio (12-20); Blood Urea Nitrogen < 5 mg/dL (9-23); Calcium 9.1 mg/dL (8.3-10.6); Chloride 97 mMol/L (98-107); Creatinine (Component) 0.8 mg/dL (0.6-1.3); Estimated Creatinine Clearance 158.4 mL/min (>60); Glucose 116 mg/dL (74-106); Osmolality,Calculated 259 (275-295); Potassium 3.9 mMol/L (3.4-5.1); Sodium 130 mMol/L (136-145); eGFR > 60 See Note
[2024-01-18 08:00] VITALS: BP 147/88; PULSE 107; RESP 19; TEMP 36.1; O2SAT 95
[2024-01-18] MEDS: ENOXAPARIN SOD INJ 40 MG/0.4 ML SYRINGE SC (08:47)
[2024-01-18] MEDS: PANTOPRAZOLE INJ 40 MG VIAL IVP (08:47)
[2024-01-18 12:00] VITALS: BP 127/78; PULSE 90; RESP 18; TEMP 36.1; O2SAT 99
--- NOTE | 2024-01-18 12:03 | PD.SURPROG ---
Documentation for date of: 01/18/24 Subjective Subjective Narrative: Patient is seen and examined. His pain is improving. He denies nausea or vomiting. He has had loose bowel movements Exam Vital Signs Temp Pulse Resp BP Pulse Ox O2 Del Method 96.9 F 107 H 19 147/88 H 95 Room Air 01/18/24 08:00 01/18/24 08:00 01/18/24 08:00 01/18/24 08:00 01/18/24 08:00 01/18/24 08:00 Constitutional Constitutional: no acute distress Routine Abdominal Exam Abdominal: Present soft, normoactive bowel sounds and tenderness (Right lower quadrant tenderness to palpation with guarding, no rebound tenderness or peritonitis at this time); Absent distended Assessment & Plan Diagnosis (1) Acute appendicitis with perforation and localized peritonitis, without abscess or gangrene: Status: Acute Plan Continue IV antibiotics as WBC still elevated. Will start on clear liquids
--- NOTE | 2024-01-18 13:39 | ESPR_ITS ---
Documentation for date of: 01/18/24 Subjective Subjective Interval history: No overnight events. Patient feels well, has no pain despite having stopped taking the morphine at approximately 10 PM last night. Had several small loose watery bowel movements. Denies fever, chills, nausea, vomiting, dysuria, diarrhea, constipation. Continue Zosyn and IV fluids, advance to clear liquid diet per surgery recommendation. Exam Vital Signs Temp Pulse Resp BP Pulse Ox O2 Del Method 97.0 F 90 18 127/78 99 Room Air 01/18/24 12:00 01/18/24 12:00 01/18/24 12:00 01/18/24 12:00 01/18/24 12:00 01/18/24 12:00 Narrative Exam PE: Gen: Well-developed and well-nourished. HEENT: NCAT, PERRLA, EOMI, MMM, anicteric conjunctivae. CVS: normal S1 and S2. RRR. No M/R/G. Resp: CTA B/L. No rhonchi, rales, crackles or wheezing. Abd: soft, non-distended. No tenderness. MSK: Good ROM in BUE & BLE. No edema or rash. Neuro: CN II-XII grossly intact. Strength 5/5 in BUE & BLE. Alert and oriented x3. Psych: appropriate mood and affect. Objective Labs 01/18/24 05:10 01/18/24 05:10 Labs: Laboratory Results - last 24 hr 01/18/24 01/18/24 01:10 05:10 WBC 15.1 H RBC 4.60 Hgb 12.5 L Hct 38.4 L MCV 84 MCH 27.2 MCHC 32.6 RDW Std Deviation 38.5 Plt Count 394 D Neut % (Auto) 81 H Lymph % (Auto) 9 L [place] % (Auto) 9 Eos % (Auto) 1 Baso % (Auto) 0 Neut # (Auto) 12.2 H Lymph # (Auto) 1.3 [place] # (Auto) 1.4 H Eos # (Auto) 0.1 Baso # (Auto) 0.0 Immature Gran # (Auto) 0.07 H Absolute Nucleated RBC 0.00 Immature Gran % 1 H Nucleated RBC % 0 PT 16.2 H INR 1.5 H APTT 32.8 Sodium 130 L Potassium 3.9 Chloride 97 L Carbon Dioxide 26.0 Anion Gap 7 BUN < 5 L Creatinine 0.8 Estim Creat Clear Calc 158.4 eGFR > 60 BUN/Creatinine Ratio 6 L Glucose 116 H Calculated Osmolality 259 L Calcium 9.1 Quality Measures Quality Measures VTE prophylaxis Assessment & Plan Assessment Current Active Medications: Generic Name Dose Route Start Last Admin Trade Name Freq PRN Reason Stop Dose Admin Acetaminophen 650 mg 01/17/24 01:03 Acetaminophen 325 Mg Tablet PO 02/16/24 01:02 Q6H PRN Fever >101.5 Enoxaparin Sodium 40 mg 01/17/24 09:00 01/18/24 08:47 Enoxaparin Sod Inj 40 Mg/0.4 Ml Syringe SC 01/31/24 08:59 40 mg QDAY MUMTAZ Administration Piperacillin/Tazobactam/Dextrose 3.375 gm in 50 mls @ 12.5 mls/hr 01/17/24 06:00 01/18/24 13:32 Zosyn IV 01/24/24 05:59 12.5 mls/hr Q8HR MUMTAZ Administration Potassium Chloride/Dextrose/Sod Cl 20 meq in 1,000 mls @ 50 mls/hr 01/18/24 12:04 Kcl 20 Meq/L In D5-1/2ns IV 02/17/24 12:03 .Q20H MUMTAZ Morphine Sulfate 2 mg 01/17/24 01:03 01/17/24 21:40 Morphine Sulf Inj 10 Mg/Ml Vial IVP 01/22/24 01:02 2 mg Q2H PRN Administration PAIN SCALE 7-10 (Severe Ondansetron HCl 4 mg 01/17/24 08:14 Ondansetron Inj 2 Mg/Ml Inj 2 Ml IV 02/16/24 08:13 Q6HR PRN NAUSEA OR VOMITING Protocol Pantoprazole Sodium 40 mg 01/17/24 09:00 01/18/24 08:47 Pantoprazole Inj 40 Mg Vial IVP 02/16/24 08:59 40 mg QDAY MUMTAZ Administration Plan 23 y/o M without significant PMHx presenting to ED with complaint of intermittent abdominal pain with associated fevers, nausea, vomiting x 1 week, admitted for ruptured appendix. #Sepsis secondary to ruptured appendix Patient presented with complaint of intermittent abdominal pain with associated fevers, nausea, vomiting all of which were becoming progressively worse despite treatment with Tylenol and ibuprofen. In ED patient met SIRS criteria 3/4: Tachycardia 117, fever 102.2, leukocytosis 15.8. CT A/P showed infectious mass around cecum most likely ruptured acute appendicitis. Patient given 1 L bolus normal saline in the ED. General surgery's been consulted. Patient started on Zosyn and IV fluids. Showed symptomatic improvement, denies any nausea, vomiting, abdominal pain or tenderness even without morphine. Leukocytosis up trended, Zosyn continued. Clear liquid diet initiated per general surgery's recommendations. -Clear liquid diet -Zosyn 3.375 g IV every 8 hours (started 01/17/2024) -IVF: Potassium chloride 20 mEq in 1 L D5?half NS at 100 mL/h -Tylenol 650 mg p.o. every 6 hours for fever or pain -Zofran 4 mg IV every 6 hours for nausea -Morphine 2 g IV every 2 hours as needed for severe pain -Surgery consult appreciated. #Hyponatremia, asymptomatic Patient sodium decreased from 136 to 130 on routine labs. Patient is asymptomatic. Expect to improve as his diet advances. -Continue to monitor daily labs #Kidney stone with microscopic hematuria Microscopic hematuria noted on urine analysis. CT A/P showed 3 mm calcification in right renal cyst. -Will continue to monitor DVT prophylaxis: Lovenox GI prophylaxis: Protonix IV Diet: Clear liquid diet Lines: Peripheral IV Code status: Full code Plan of care discussed with attending Dr. Kolb. Bandar Medeiros MD PGY-1 Attending Provider Attestation/Addendum I have examined the patient, reviewed labs and imaging findings, discussed the case with the resident(s), and reviewed entered orders. I agree with the plan of care as outlined in this note, with these additional summaries/recommendations: Patient seen at bedside. Patient admitted for acute ruptured appendicitis. CT of abdomen and pelvis showed large phlegmonous infectious mass surrounding the cecum with poorly defined tubular structure most consistent with inflamed ruptured acute appendicitis. Patient reports pain is controlled. General surgery following. Advance diet to clear liquids, DC IV maintenance fluids, and continue IV Zosyn 3.375 g every 8 hours as leukocytosis slightly worsened today. 17 mm right renal cyst and microscopic hematuria found on admission. Outpatient follow-up. Repeat hematology and chemistry panel in am. Dr. Kolb
--- NOTE | 2024-01-18 14:50 | PC.SS ---
Modesta Ayala is 23 year old male admitted to [facility] for ruptured appendicitis. SS conducted bedside contact with the patient to complete initial assessment and to discuss discharge planning. SW used all precautionary measures to complete initial. Role and reason for the contact was explained to Modesta. Pt is alert and oriented times 4. Pt gave verbal authorization for brother to be present while assessment was conducted. Patient confirmed demographic information and lives with family. Patient identifies Amy Ayala, , as surrogate decision maker. Pt states prior to hospitalization is able to complete ADL?s independently. Pt does not have DME equipment nor O2 .Pt confirmed no history of mental health or substance abuse. Pts PCP is Don Cantrell but is looking for a new PCP. Pharmacy of choice is [facility]. Discharge options discussed and the pt will return home. Family will provide transportation upon DC. No further intervention required at this time, director of social work would be available to address any further concerns. DC Plan: Home Contact: Mother Cooney, Address: Confirmed on face sheet PCP: Don Cantrell
--- NOTE | 2024-01-18 14:53 | PC.SS ---
rounding possible surgery waiting for consult
[2024-01-18 16:00] VITALS: BP 148/75; PULSE 81; RESP 18; TEMP 36.1; O2SAT 97
[2024-01-18 20:00] VITALS: BP 129/78; PULSE 86; RESP 18; TEMP 36.1; O2SAT 98
[2024-01-19] VITALS: BP 121/73; PULSE 71; RESP 17; TEMP 36.1; O2SAT 98
[2024-01-19 04:00] VITALS: BP 116/65; PULSE 62; RESP 18; TEMP 36.6; O2SAT 94
[2024-01-19] MEDS: PIPER/TAZO 3.375 GM 3.375 GM/50 ML BAG IV ×3 (05:07→21:09)
[2024-01-19 06:24] LABS: Basophils % (Auto) 0 % (0-2.5); Eosinophils # (Auto) 0.3 Thou/mm3 (0.0-0.5); Eosinophils % (Auto) 4 % (0-10); Hematocrit 38.7 % (41.0-53.0); Hemoglobin 12.7 g/dL (13.5-16.0); Immature Granulocytes % (Auto) 1 % (0-0); Immature Granulocytes Auto 0.06 Thou/mm3 (0.00-0.00); Lymphocytes # (Auto) 1.2 Thou/mm3 (1.0-4.8); Lymphocytes % (Auto) 17 % (10-50); Mean Corpuscular HGB Conc 32.8 g/dl (31.0-37.0); Mean Corpuscular Hemoglobin 27.4 pg (25.0-35.0); Mean Corpuscular Volume 83 fL (80-100); Monocytes # (Auto) 0.7 Thou/mm3 (0.0-0.8); Monocytes % (Auto) 10 % (0-12); Neutrophils # (Auto) 4.8 Thou/mm3 (1.8-7.7); Neutrophils % (Auto) 69 % (37-80); Nucleated Red Blood Cell % 0 /100 WBC (0); Platelet Count 267 Thou/mm3 (140-440); RDW Standard Deviation 38.4 fL (35.1-43.9); Red Blood Count 4.64 Miln/mm3 (4.50-5.90)
[2024-01-19 06:47] LABS: Anion Gap 6 (7-16); BUN/Creatinine Ratio 7 Ratio (12-20); Blood Urea Nitrogen < 5 mg/dL (9-23); Calcium 9.5 mg/dL (8.3-10.6); Carbon Dioxide 27.1 mMol/L (20.0-31.0); Chloride 102 mMol/L (98-107); Creatinine (Component) 0.7 mg/dL (0.6-1.3); Glucose 99 mg/dL (74-106); Osmolality,Calculated 267 (275-295); Potassium 4.4 mMol/L (3.4-5.1); Sodium 135 mMol/L (136-145); eGFR > 60 See Note
[2024-01-19 08:00] VITALS: BP 122/73; PULSE 75; RESP 20; TEMP 36; O2SAT 97
[2024-01-19] MEDS: KCL 20 mEq/L in D5-1/2NS 20 MEQ/1,000 ML BAG 50 MEQ IV (08:38)
[2024-01-19] MEDS: ENOXAPARIN SOD INJ 40 MG/0.4 ML SYRINGE SC (08:39)
[2024-01-19] MEDS: PANTOPRAZOLE INJ 40 MG VIAL IVP (08:39)
--- NOTE | 2024-01-19 10:54 | PC.SS ---
Rounding: One more day of monitor, possible DC tomorrow 01/19
--- NOTE | 2024-01-19 11:54 | PD.SURPROG ---
Documentation for date of: 01/19/24 Subjective Subjective Narrative: Patient is seen and examined. His pain is improving. He is tolerating clear liquids without nausea or vomiting Exam Vital Signs Temp Pulse Resp BP Pulse Ox O2 Del Method 96.8 F 75 20 122/73 97 Room Air 01/19/24 08:00 01/19/24 08:00 01/19/24 08:00 01/19/24 08:00 01/19/24 08:00 01/19/24 08:00 Constitutional Constitutional: no acute distress Routine Abdominal Exam Abdominal: Present soft, normoactive bowel sounds and tenderness (Minimal tenderness to deep palpation over right lower quadrant, no rebound tenderness or peritonitis at this time); Absent distended Assessment & Plan Diagnosis (1) Acute appendicitis with perforation and localized peritonitis, without abscess or gangrene: Status: Acute Plan Continue IV antibiotics. Advance diet. If tolerating diet and continues to improve, possible discharge home on oral antibiotics tomorrow
[2024-01-19 12:00] VITALS: BP 113/73; PULSE 66; RESP 19; TEMP 36.6; O2SAT 99
[2024-01-19 16:00] VITALS: BP 135/75; PULSE 67; RESP 18; TEMP 36.8; O2SAT 99
--- NOTE | 2024-01-19 16:53 | ESPR_ITS ---
Documentation for date of: 01/19/24 Subjective Subjective Interval history: The patient was interviewed and examined at the bedside this morning. He reported doing well. He denied any abdominal pain, nausea or vomiting. He reported having bowel movement. Exam Vital Signs Temp Pulse Resp BP Pulse Ox O2 Del Method 98.2 F 67 18 135/75 H 99 Room Air 01/19/24 16:00 01/19/24 16:00 01/19/24 16:00 01/19/24 16:00 01/19/24 16:00 01/19/24 16:00 Narrative Exam General: No acute distress, Alert and Oriented x 3 HEENT: Moist mucous membranes, oropharynx clear Neck: Supple, No masses, No JVD CVS: S1S2 Regular rate and rhythm, No murmurs, rubs or gallops Lungs: Clear to auscultation with no accessory use, no wheeze no rhonchi Abd: Soft, NT/ND, +BS, no organomegaly Ext: No edema, warm and well perfused Skin: No rash Psych: Appropriate mood and affect Objective Labs 01/19/24 05:00 01/19/24 05:00 Labs: Laboratory Results - last 24 hr 01/19/24 05:00 WBC 7.0 D RBC 4.64 Hgb 12.7 L Hct 38.7 L MCV 83 MCH 27.4 MCHC 32.8 RDW Std Deviation 38.4 Plt Count 267 D Neut % (Auto) 69 Lymph % (Auto) 17 [place] % (Auto) 10 Eos % (Auto) 4 Baso % (Auto) 0 Neut # (Auto) 4.8 Lymph # (Auto) 1.2 [place] # (Auto) 0.7 Eos # (Auto) 0.3 Baso # (Auto) 0.0 Immature Gran # (Auto) 0.06 H Absolute Nucleated RBC 0.00 Immature Gran % 1 H Nucleated RBC % 0 Sodium 135 L Potassium 4.4 D Chloride 102 Carbon Dioxide 27.1 Anion Gap 6 L BUN < 5 L Creatinine 0.7 Estim Creat Clear Calc 181.0 eGFR > 60 BUN/Creatinine Ratio 7 L Glucose 99 Calculated Osmolality 267 L Calcium 9.5 Quality Measures Quality Measures VTE prophylaxis Assessment & Plan Assessment Current Active Medications: Generic Name Dose Route Start Last Admin Trade Name Freq PRN Reason Stop Dose Admin Acetaminophen 650 mg 01/17/24 01:03 Acetaminophen 325 Mg Tablet PO 02/16/24 01:02 Q6H PRN Fever >101.5 Enoxaparin Sodium 40 mg 01/17/24 09:00 01/19/24 08:39 Enoxaparin Sod Inj 40 Mg/0.4 Ml Syringe SC 01/31/24 08:59 40 mg QDAY MUMTAZ Administration Piperacillin/Tazobactam/Dextrose 3.375 gm in 50 mls @ 12.5 mls/hr 01/17/24 06:00 01/19/24 13:25 Zosyn IV 01/24/24 05:59 12.5 mls/hr Q8HR MUMTAZ Administration Morphine Sulfate 2 mg 01/17/24 01:03 01/17/24 21:40 Morphine Sulf Inj 10 Mg/Ml Vial IVP 01/22/24 01:02 2 mg Q2H PRN Administration PAIN SCALE 7-10 (Severe Ondansetron HCl 4 mg 01/17/24 08:14 Ondansetron Inj 2 Mg/Ml Inj 2 Ml IV 02/16/24 08:13 Q6HR PRN NAUSEA OR VOMITING Protocol Pantoprazole Sodium 40 mg 01/17/24 09:00 01/19/24 08:39 Pantoprazole Inj 40 Mg Vial IVP 02/16/24 08:59 40 mg QDAY MUMTAZ Administration Plan 23 y/o M without significant PMHx presenting to ED with complaint of intermittent abdominal pain with associated fevers, nausea, vomiting x 1 week, admitted for ruptured appendix. #Sepsis secondary to ruptured appendix, sepsis resolved #Ruptured appendix Patient presented with complaint of intermittent abdominal pain with associated fevers, nausea, vomiting all of which were becoming progressively worse despite treatment with Tylenol and ibuprofen. In ED patient met SIRS criteria 3/4: Tachycardia 117, fever 102.2, leukocytosis 15.8. CT A/P showed infectious mass around cecum most likely ruptured acute appendicitis. Patient given 1 L bolus normal saline in the ED. General surgery's been consulted. Patient started on Zosyn and IV fluids. Showed symptomatic improvement, denies any nausea, vomiting, abdominal pain or tenderness even without morphine. Leukocytosis up trended, Zosyn continued. Clear liquid diet initiated per general surgery's recommendations. -Advance to soft diet -Zosyn 3.375 g IV every 8 hours (started 01/17/2024) -IVF: Potassium chloride 20 mEq in 1 L D5?half NS at 100 mL/h -Tylenol 650 mg p.o. every 6 hours for fever or pain -Zofran 4 mg IV every 6 hours for nausea -Surgery consult appreciated. #Hyponatremia, asymptomatic, improving Patient sodium decreased from 136 to 130 on routine labs. Patient is asymptomatic. Expect to improve as his diet advances. -This morning sodium 135 -Continue to monitor sodium #Kidney stone with microscopic hematuria Microscopic hematuria noted on urine analysis. CT A/P showed 3 mm calcification in right renal cyst. -Will continue to monitor -Encouraged oral hydration DVT prophylaxis: Lovenox GI prophylaxis: Protonix IV Diet: Soft diet Lines: Peripheral IV Code status: Full code Dispo: Patient admitted for further management of ruptured appendix, possible discharge tomorrow on oral antibiotics The patient's management plan was discussed with my attending physician MD Hernan Richards MD, PGY2 Attending Provider Attestation/Addendum I have examined the patient, reviewed labs and imaging findings, discussed the case with the resident(s), and reviewed entered orders. I agree with the plan of care as outlined in this note, with these additional summaries/recommendations: Patient seen at bedside. Patient admitted for acute ruptured appendicitis. CT of abdomen and pelvis showed large phlegmonous infectious mass surrounding the cecum with poorly defined tubular structure most consistent with inflamed ruptured acute appendicitis. Patient reports pain is controlled. General surgery following. Advance diet as tolerated and continue IV Zosyn 3.375 g every 8 hours. Per surgery if patient continues to improve then possible discharge tomorrow 01/20/24 with oral antibiotics. 17 mm right renal cyst and microscopic hematuria found on admission. Outpatient follow-up. Repeat hematology and chemistry panel in am. Dr. Kolb
[2024-01-19 20:00] VITALS: BP 129/80; PULSE 75; RESP 18; TEMP 36.3; O2SAT 99
[2024-01-20] VITALS: BP 123/77; PULSE 75; RESP 18; TEMP 36.9; O2SAT 99
[2024-01-20 04:00] VITALS: BP 115/65; PULSE 60; RESP 18; TEMP 36.5; O2SAT 99
[2024-01-20] MEDS: PIPER/TAZO 3.375 GM 3.375 GM/50 ML BAG IV ×2 (05:11→13:08)
[2024-01-20 05:33] LABS: Basophils % (Auto) 0 % (0-2.5); Eosinophils # (Auto) 0.3 Thou/mm3 (0.0-0.5); Eosinophils % (Auto) 5 % (0-10); Hematocrit 38.6 % (41.0-53.0); Hemoglobin 12.3 g/dL (13.5-16.0); Immature Granulocytes % (Auto) 0 % (0-0); Immature Granulocytes Auto 0.01 Thou/mm3 (0.00-0.00); Lymphocytes # (Auto) 1.4 Thou/mm3 (1.0-4.8); Lymphocytes % (Auto) 25 % (10-50); Mean Corpuscular HGB Conc 31.9 g/dl (31.0-37.0); Mean Corpuscular Hemoglobin 26.9 pg (25.0-35.0); Mean Corpuscular Volume 85 fL (80-100); Monocytes # (Auto) 0.7 Thou/mm3 (0.0-0.8); Monocytes % (Auto) 12 % (0-12); Neutrophils # (Auto) 3.4 Thou/mm3 (1.8-7.7); Neutrophils % (Auto) 58 % (37-80); Nucleated Red Blood Cell % 0 /100 WBC (0); Platelet Count 387 Thou/mm3 (140-440); RDW Standard Deviation 38.3 fL (35.1-43.9); Red Blood Count 4.57 Miln/mm3 (4.50-5.90); White Blood Count 5.8 Thou/mm3 (3.8-10.6)
[2024-01-20 06:23] LABS: Alanine Aminotransferase 27 U/L (10-49); Albumin, Serum 3.9 gm/dL (3.5-5.0); Albumin/Globulin Ratio 1.1 (1.2-2.2); Alkaline Phosphatase 96 U/L (46-116); Anion Gap 5 (7-16); Aspartate Amino Transferase 21 U/L (0-34); BUN/Creatinine Ratio 9 Ratio (12-20); Bilirubin,Total 0.3 mg/dL (0.3-1.2); Blood Urea Nitrogen 7 mg/dL (9-23); Calcium 9.6 mg/dL (8.3-10.6); Calcium (Corrected) 9.7 mg/dL (8.5-10.1); Carbon Dioxide 27.7 mMol/L (20.0-31.0); Chloride 103 mMol/L (98-107); Creatinine (Component) 0.8 mg/dL (0.6-1.3); Estimated Creatinine Clearance 158.4 mL/min (>60); Globulin 3.4 gm/dL (2.3-3.5); Glucose 92 mg/dL (74-106); Osmolality,Calculated 269 (275-295); Potassium 4.2 mMol/L (3.4-5.1); Sodium 136 mMol/L (136-145); Total Protein 7.3 gm/dL (5.7-8.2); eGFR > 60 See Note
[2024-01-20 07:50] VITALS: BP 126/72; PULSE 56; RESP 18; TEMP 36.2; O2SAT 98
[2024-01-20] MEDS: PANTOPRAZOLE INJ 40 MG VIAL IVP (08:57)
[2024-01-20] MEDS: ENOXAPARIN SOD INJ 40 MG/0.4 ML SYRINGE SC (08:57)
--- NOTE | 2024-01-20 11:32 | PD.SURPROG ---
Documentation for date of: 01/20/24 Subjective Subjective Narrative: Patient is seen and examined. He is feeling much better. He is tolerating regular diet without nausea or vomiting and having bowel movements Exam Vital Signs Temp Pulse Resp BP Pulse Ox O2 Del Method 97.1 F 56 L 18 126/72 98 Room Air 01/20/24 07:50 01/20/24 07:50 01/20/24 07:50 01/20/24 07:50 01/20/24 07:50 01/20/24 07:50 Constitutional Constitutional: no acute distress Routine Abdominal Exam Abdominal: Present soft and normoactive bowel sounds; Absent tenderness or distended Assessment & Plan Diagnosis (1) Acute appendicitis with perforation and localized peritonitis, without abscess or gangrene: Status: Acute Plan May discharge home on oral antibiotics for 10 days. Follow-up with Dr Romero in 2 weeks, please call [phone] for an appointment.
[2024-01-20 12:00] VITALS: BP 136/64; PULSE 70; RESP 18; TEMP 36.2; O2SAT 98
--- NOTE | 2024-01-20 12:45 | PC.IP ---
states to dc after antibiotic done at 1400
--- NOTE | 2024-01-20 14:48 | CHAP ---
9:30 AM Visited by spiritual care volunteer Provided prayer for Patient.
--- NOTE | 2024-01-20 15:26 | ESDS_ITS ---
Planned Discharge Date 01/20/24 DS: Providers Provider Date of admission: 01/17/24 01:03 Primary care physician: Don Cantrell MD Admitting Provider: Moises Rodas MD Attending Provider on Admission: Melvin Kolb MD Consults: 01/17/24 01:02 Consult to General Surgery Routine Comment: inflamed ruptured acute appendicitis Consulting Provider: Josefina Romero Attending Provider on DC: Melvin Kolb MD Discharging Provider: Bandar Medeiros MD DS: Diagnosis Problem List Completed Was Problem List Reviewed/Reconciled?: Yes Hospital Course Hospital Course Hospital course: 23 y/o M without significant PMHx presenting to ED with complaint of intermittent abdominal pain with associated fevers, nausea, vomiting x 1 week, admitted for ruptured appendix. Patient presented with complaint of intermittent abdominal pain with associated fevers, nausea, vomiting all of which were becoming progressively worse despite treatment with Tylenol and ibuprofen. In ED patient met SIRS criteria 3/4: Tachycardia 117, fever 102.2, leukocytosis 15.8. CT A/P showed infectious mass around cecum most likely ruptured acute appendicitis. Patient given 1 L bolus normal saline in the ED. General surgery was consulted, patient started on Zosyn and IV fluids. Showed symptomatic improvement, denies any nausea, vomiting, abdominal pain or tenderness even without morphine. Diet advanced without issue. Patient continued to symptomatically improve, cleared for discharge from surgical and medical perspective. Discharge planning: Please follow-up with your PCP within 1 week of discharge. Please follow-up with general surgeon Dr. Romero within 2 weeks of discharge. -You have been started on ciprofloxacin 500 Mg twice daily for 10 more days and metronidazole 500 Mg 3 times daily for 10 more days. -Recommended to return back to emergency department if your symptoms persist or does not improve Diagnoses: #Sepsis secondary to ruptured appendix, sepsis resolved #Ruptured appendix #Hyponatremia, asymptomatic, resolved #Kidney stone with microscopic hematuria Plan of care discussed with senior resident Dr. Love PGY?[address] Kolb. Bandar Medeiros MD PGY-1 Time Spent with Patient Time attestation: Total time spent providing and/or coordinating discharge services: Exam Vital Signs Temp Pulse Resp BP Pulse Ox O2 Del Method 97.1 F 70 18 136/64 H 98 Room Air 01/20/24 12:00 01/20/24 12:00 01/20/24 12:00 01/20/24 12:00 01/20/24 12:00 01/20/24 12:00 Narrative Exam PE: Gen: Well-developed and well-nourished. HEENT: NCAT, PERRLA, EOMI, MMM, anicteric conjunctivae. CVS: normal S1 and S2. RRR. No M/R/G. Resp: CTA B/L. No rhonchi, rales, crackles or wheezing. Abd: soft, non-distended. No tenderness. MSK: Good ROM in BUE & BLE. No edema or rash. Neuro: CN II-XII grossly intact. Strength 5/5 in BUE & BLE. Alert and oriented x3. Psych: appropriate mood and affect. Discharge Plan Plan Patient Disposition: HOME (Self Care) Disposition Comment: MED SURG ADMIT Patient condition on transfer: Stable Care Plan Goals: Please follow-up with your PCP within 1 week of discharge. Please follow-up with general surgeon Dr. Romero within 2 weeks of discharge. -You have been started on ciprofloxacin 500 Mg twice daily for 10 more days and metronidazole 500 Mg 3 times daily for 10 more days. -Recommended to return back to emergency department if your symptoms persist or does not improve Prescriptions/Referrals Prescriptions/Med Rec: New ciprofloxacin HCl 500 mg tablet 500 mg PO BID Qty: 20 0RF metronidazole 500 mg tablet 500 mg PO TID Qty: 30 0RF Referrals: Don Cantrell MD [Primary Care Provider] - Josefina Romero MD [Physician] - Patient/Caregiver Discharge Instructions Other Discharge Activity Instructions:: Take ciprofloxacin and metronidazole twice a day for 10 more days Follow up with PCP in 1-2 weeks to monitor symptoms and Dr. Romero within 2 week of discharge Return to the ER if you experience new or worsening symptoms Education Materials: What Is Appendicitis? Print Language: Indonesian Stand Alone Forms: Bertha Award Info., Patient Portal Info Letter Discharge Order Discharge Orders: Discharge (Routine); Ordered 01/20/24 Ordered By: Hernan Morales Quality Discharge Quality Measures VTE prophylaxis Attestestation MD Attestation I have examined the patient, reviewed labs and imaging findings, discussed the case with the resident(s), and reviewed entered orders. I agree with the plan of care as outlined in this note. Dr. Kolb
[2024-01-20 15:33] VITALS: BP 136/64; PULSE 70; RESP 18; TEMP 36.2; O2SAT 98
[2024-01-20 16:51] VITALS: BP 124/81; PULSE 80; RESP 18; TEMP 36; O2SAT 100
--- NOTE | 2024-01-20 16:56 | PC.NURSE ---
pt alert and oriented gcs 15, no signs of distress noted. pt educated on discharge. pt antibiotcs finished. pt ambulated with no assistance.
== END 2024-01-20 15:51 | disposition home or self-care (01) | DRG 720 ==
LOC: SERX 22:30 → SERHOLD 01-17 02:20 → S3SX 01-17 02:52
PROVIDERS: Physician Assistant; Student in an Organized Health Care Education/Training Program; Admitting Provider Internal Medicine; Emergency Provider Emergency Medicine; PCP Family Medicine; Visit Provider Student in an Organized Health Care Education/Training Program
DX: A41.9 Sepsis, unspecified organism (principal); K35.32 Acute appendicitis with perforation, localized peritonitis, and gangrene, without abscess; N28.1 Cyst of kidney, acquired; N20.0 Calculus of kidney; E87.1 Hypo-osmolality and hyponatremia
CPT/HCPCS: 36415; 74177; 80048; 80053; 80061; 80307; 81001; 83605; 83690; 84145; 85025; 85610; 85730; 87040; 96361; 96365; 96367; 99285; A4649; J0744; J1650; J2270; J2470; J2543; J3480; J3490; J7030; Q9967; A9270; J1836

== ENCOUNTER 2024-03-23 11:45 | Day surgery (SDC) | payer MEDICAID, SELFPAY ==
[2024-03-22 10:29] VITALS: BMI 33.3
[2024-03-22 11:10] LABS: Basophils % (Auto) 0 % (0-2.5); Eosinophils # (Auto) 0.1 Thou/mm3 (0.0-0.5); Eosinophils % (Auto) 1 % (0-10); Hematocrit 43.4 % (41.0-53.0); Hemoglobin 14.4 g/dL (13.5-16.0); Immature Granulocytes % (Auto) 0 % (0-0); Immature Granulocytes Auto 0.01 Thou/mm3 (0.00-0.00); Lymphocytes # (Auto) 1.3 Thou/mm3 (1.0-4.8); Lymphocytes % (Auto) 21 % (10-50); Mean Corpuscular HGB Conc 33.2 g/dl (31.0-37.0); Mean Corpuscular Hemoglobin 27.2 pg (25.0-35.0); Mean Corpuscular Volume 82 fL (80-100); Monocytes # (Auto) 0.5 Thou/mm3 (0.0-0.8); Monocytes % (Auto) 8 % (0-12); Neutrophils # (Auto) 4.5 Thou/mm3 (1.8-7.7); Neutrophils % (Auto) 70 % (37-80); Nucleated Red Blood Cell % 0 /100 WBC (0); Platelet Count 310 Thou/mm3 (140-440); RDW Standard Deviation 39.3 fL (35.1-43.9); Red Blood Count 5.29 Miln/mm3 (4.50-5.90); White Blood Count 6.4 Thou/mm3 (3.8-10.6)
[2024-03-22 11:20] LABS: Anion Gap 6 (7-16); BUN/Creatinine Ratio 11 Ratio (12-20); Blood Urea Nitrogen 10 mg/dL (9-23); Calcium 9.9 mg/dL (8.3-10.6); Carbon Dioxide 29.4 mMol/L (20.0-31.0); Chloride 101 mMol/L (98-107); Creatinine (Component) 0.9 mg/dL (0.6-1.3); Estimated Creatinine Clearance 136.7 mL/min (>60); Glucose 93 mg/dL (74-106); Osmolality,Calculated 270 (275-295); Potassium 4.1 mMol/L (3.4-5.1); Sodium 136 mMol/L (136-145); eGFR > 60 See Note
[2024-03-23] VITALS (9 sets, daily range): BP systolic 133–161; BP diastolic 73–103; PULSE 64–89; RESP 12–25; TEMP 36.6–36.9; O2SAT 96–100; BMI 33.5
[2024-03-23] MEDS: RINGERS LACTATED 1000 ML 1,000 ML 20 ML IV (12:32)
--- NOTE | 2024-03-23 14:55 | PD.SUROPNT ---
Date of Procedure 03/23/24 Pre Op Diagnosis History of perforated appendicitis managed nonoperatively Post Op Diagnosis Appendicitis Procedure Laparoscopic appendectomy Findings Dilated and thickened appendix Procedure Description Patient was brought into the operating room in supine position. After administration of general endotracheal anesthesia, abdomen was prepped and draped in standard surgical manner. A Veress needle was inserted through the umbilicus and pneumoperitoneum was obtained up to 15 mmHg. The Veress needle was removed and a 5 mm umbilical incision was made. A 5 mm trocar was placed and laparoscopic camera was inserted. Under direct visualization a laparoscopic camera a 5 mm trocar placed in suprapubic region and a 10 mm trocar placed in left lower quadrant. The abdomen was inspected, the cecum was identified and followed until the appendix was identified. The appendix was noted to be dilated and thickened. A window was created between the appendix and mesoappendix and the appendix was divided near the appendix and cecal junction with blue Endo EVELYN stapling device. The mesoappendix was divided with sultana Endo EVELYN stapling device. The appendix was placed inside an Endo Catch and removed from the abdomen utilizing left lower quadrant trocar site. Abdomen and pelvis copiously and thoroughly washed and irrigated, all the fluids were suctioned and the suctioned fluid returned clear. Hemostasis was adequate and satisfactory, staple lines were intact without bleeding or any leakage. Left lower quadrant trocar sites fascial defect was closed with 0 Vicryl using Endo closure device. Instruments and trocars removed, pneumoperitoneum was evacuated and the incisions closed with 4-0 Monocryl subcuticular fashion. Instruments, needles and sponge counts were reported to be correct ??2. Patient tolerated the procedure well, was extubated, breathing spontaneously and without difficulty and was transferred to postanesthesia care in stable condition. Anesthesia GETA and local Pathology / specimen Other (Appendix) Estimated Blood Loss 5 Condition Stable Disposition PACU Surgeon Josefina Romero MD Surgical Staff Operation Date: 03/23/24 15:30 Case Staff Anesthesiologist: Cristhian Chavarria RNpainting manager: Yanira Huang
[2024-03-23] MEDS: fentaNYL CIT INJ 50 mCg/ML AMP 2ML IV (15:29)
--- NOTE | 2024-03-23 15:45 | SUR.PHASEI ---
1500: Pt [facility] [facility] Report from Tonya HANNAH and Dr. Chvaarria. Pt awake. Resp even, unlabored. VS stable. Surgical sites x3 to abdomen secured with dermabond. No swelling, hematoma. No c/o pain.
--- NOTE | 2024-03-23 15:47 | SUR.PHASEI ---
1520: Pt more awake. Resp even, unlabored. VS stable. Surgical sites unchanged.
--- NOTE | 2024-03-23 15:48 | SUR.PHASEII ---
1529: Pt has c/o pain to abdomen. Rates pain level 7/10. VS stable. Resp even, unlabored. Pain medication given per order, 1540: Pt states pain level down 3/10 and is much more tolerable. Resp even, unlabored. VS stable. 1550: Pt sitting up tolerating po fluids with no difficulty swallowing and no n/v.
--- NOTE | 2024-03-23 17:15 | SUR.PHASEII ---
1625: Pt fully awake, oriented x3. VS stable. Surgical sites remain dry, clean, intact with no swelling, hematoma. States pain level much more tolerable. Pt dressed and assisted to transport chair. Ambulation steady. Pt and mother stated understanding of discharge instructions. Pt also instructed to hop picker his prescription at [facility] on [address] Pt discharged from [facility] in stable condition.
== END 2024-03-23 16:25 | disposition home or self-care (01) ==
PROVIDERS: PCP Family Medicine; Referring Provider Surgery; Visit Provider Surgery
PROC: 0DTJ4ZZ Resection of Appendix, Percutaneous Endoscopic Approach (ICD-10-PCS; CPT 44970; principal; 2024-03-23 15:15)
DX: K36 Other appendicitis (principal)
CPT/HCPCS: 44970; 36415; 80048; 85025; A4217; A4649; J0694; J1100; J2250; J2405; J2704; J3010; J3490; J7120